=== PATIENT | female | born 1990 | race Caucasian/White ===

== ENCOUNTER 2017-01-19 08:49 | Emergency (ER) | payer SELFPAY ==
[2017-01-19 08:54] VITALS: TEMP 98.3; BMI 20.6
--- NOTE | 2017-01-19 10:35 | PDOC ---
*Physical Exam - Vital Signs Last Vital Signs Temp Pulse Resp BP Pulse Ox 98.3 F 93 H 18 110/70 100 01/19/17 08:51 01/19/17 08:51 01/19/17 08:51 01/19/17 08:51 01/19/17 08:51 - Physical Exam Comments: 01/19/17 10:35 MIDLEVEL NOTE Pt seen by Midlevel Provider under my direct supervision. Pt interviewed and examined. Ancillary studies reviewed. I agree with plan as outlined by Midlevel Provider. 01/19/17 15:51 Pelvic ultrasound The IUD has migrated into the lower uterine segment No fibroids Simple cyst in the left ovary ADULT NEUROLOGIST called Laboratory Results - last 24 hr 01/19/17 01/19/17 01/19/17 11:40 11:40 11:40 WBC 5.5 D RBC 3.96 D Hgb 13.1 D Hct 38.8 D MCV 98.0 H MCHC 33.6 RDW 13.1 Plt Count 233 MPV 7.6 Neutrophils % 67.4 Lymphocytes % 20.8 Monocytes % 11.0 H D Eosinophils % 0.6 Basophils % 0.2 Sodium 140 Potassium 4.0 Chloride 107 Carbon Dioxide 23 D Anion Gap 10 BUN 9 D Creatinine 0.5 L D Creat Clearance w eGFR > 60 Random Glucose 89 D Calcium 8.2 L Magnesium 2.5 H Total Bilirubin 0.4 D AST 24 D ALT 23 D Alkaline Phosphatase 51 D Total Protein 7.0 Albumin 3.9 D Lipase 86 Urine Color Yellow Urine Appearance Clear Urine pH 5.0 Ur Specific [place] 1.032 Urine Protein 1+ H Urine Glucose (UA) Negative Urine Ketones 1+ H Urine Blood 2+ H Urine Nitrite Negative Urine Bilirubin Negative Urine Urobilinogen 2.0 e.u/dl H Ur Leukocyte Esterase Negative Urine RBC 3 Urine WBC 1 Ur Epithelial Cells Moderate Urine Mucus Many Urine HCG, Qual Negative Case discussed with Dr. Charlton [employer] ED Treatment Course - LABORATORY CBC & Chemistry Diagram: 01/19/17 11:40 01/19/17 11:40 *DC/Admit/Observation/Transfer Diagnosis at time of Disposition: IUD migration Qualifiers: Encounter type: initial encounter Qualified Code(s): T83.89XA - Other specified complication of genitourinary prosthetic devices, implants and grafts , initial encounter - Discharge Dispostion Disposition: HOME Condition at time of disposition: Good - Prescriptions Prescriptions: Oxycodone HCl/Acetaminophen [Percocet 5-325 mg Tablet] 1 - 2 tab PO Q6H PRN #12 tab MDD 4 PRN Reason: Pain - Referrals Referrals: Ash Charlton MD [Staff Physician] - Catherine Navarro [Primary Care Provider] - - Patient Instructions Printed Discharge Instructions: DI for Vaginal Bleeding Additional Instructions: I recommend placing a heating pad to the affected areas to alleviate discomfort and take Percocet as needed for pain. Please avoid sexual intercourse and follow-up with Dr. Charlton in the clinic to have IUD migration addressed - Post Discharge Activity Work/School Note: Back to Work
[2017-01-19] MEDS ORDERED: ONDANSETRON 4 MG/2 ML VIAL IVPUSH ONE (11:07)
[2017-01-19] MEDS ORDERED: SODIUM CHLORIDE 1,000 ML IV STA ×2 (11:07→13:09)
[2017-01-19] MEDS ORDERED: KETOROLAC TROMETHAMINE 30 MG/1 ML VIAL IVPUSH ONE (11:07)
[2017-01-19] MEDS ORDERED: KETOROLAC TROMETHAMINE 30 MG/1 ML VIAL ONE (11:32)
[2017-01-19] MEDS ORDERED: ONDANSETRON 4 MG/2 ML VIAL ONE (11:32)
--- NOTE | 2017-01-19 11:49 | PDOC ---
History of Present Illness - General Chief Complaint: Vomiting/Diarrhea Stated Complaint: NAUSEA, VOMITING Time Seen by Provider: 01/19/17 10:31 History Source: Patient Exam Limitations: No Limitations - History of Present Illness Travel History: No Initial Comments: 01/19/17 11:45 26-year-old female presents to the ED with complaints of nausea vomiting and generalized fatigue for the past few days associated with heavy vaginal bleeding. Patient states is now having low back pain and states normally does not have heavy menses. Patient states had an IUD placed 5 months ago and did use contraceptive protection in the first few months as recommended. Patient denies fever, dysuria, but does state had one episode of diarrhea this morning. Patient states has upper abdominal cramping but also mild lower abdominal cramping. Patient took nothing for the above and decided come to the ER. Timing/Duration: reports: constant Quality: reports: mild, cramping Abdominal Pain Onset Location: reports: epigastric, suprapubic Pain Radiation: reports: no radiation Activities at Onset: reports: none Aggravating Factors: improves with: None Alleviating Factors: improves with: None Past History - Past Medical History Allergies/Adverse Reactions: Allergies Allergy/AdvReac Type Severity Reaction Status Date / Time naproxen Allergy Intermediate Hives Verified 01/19/17 08:51 Home Medications: Ambulatory Orders Oxycodone HCl/Acetaminophen [Percocet 5-325 mg Tablet] 1 - 2 tab PO Q6H PRN #12 tab MDD 4 01/19/17 Asthma: No Cancer: No Cardiac Disorders: No Diabetes: No HTN: No Seizures: No Thyroid Disease: No Other medical history: none - Reproductive History LMP Normal: No (heavy 2 days) Is Patient Now?: No - Psycho/Social/Smoking Cessation Hx Anxiety: No Suicidal Ideation: No Smoking History: Never smoked Have you smoked in the past 12 months: No Information on smoking cessation initiated: No Hx Alcohol Use: No Drug/Substance Use Hx: No Substance Use Type: None Hx Substance Use Treatment: No Patient Lives Alone: No Review of Systems - Review of Systems Able to Perform ROS?: Yes HEENTM: No: Symptoms Reported Respiratory: No: Symptoms reported Cardiac (ROS): No: Symptoms Reported ABD/GI: Yes: Diarrhea, Nausea, Vomiting, Abdominal cramping : No: Symptoms Reported Musculoskeletal: Yes: Back Pain (low) Integumentary: No: Symptoms Reported Neurological: No: Symptoms reported Hematologic/Lymphatic: No: Symptoms Reported *Physical Exam - Vital Signs Last Vital Signs Temp Pulse Resp BP Pulse Ox 98.3 F 93 H 18 110/70 98 01/19/17 08:51 01/19/17 08:51 01/19/17 08:51 01/19/17 08:51 01/19/17 11:43 - Physical Exam General Appearance: Yes: Nourished, Appropriately Dressed. No: Apparent Distress HEENT: positive: EOMI, SAR[place]N. negative: Pale Conjunctivae Neck: positive: Supple Respiratory/Chest: positive: Lungs Clear, Normal Breath Sounds. negative: Respiratory Distress, Accessory Muscle Use Cardiovascular: positive: Regular Rhythm, Regular Rate. negative: Murmur Gastrointestinal/Abdominal: positive: Normal Bowel Sounds, Soft, Tenderness ( epigastric. no right upper quadrant tenderness) Musculoskeletal: negative: CVA Tenderness Extremity: positive: Normal Capillary Refill. negative: Pedal Edema Integumentary: positive: Normal Color, Warm, Moist Neurologic: positive: Motor Strength 5/5 (ambulatory) ED Treatment Course - LABORATORY CBC & Chemistry Diagram: 01/19/17 11:40 01/19/17 11:40 Medical Decision Making - Medical Decision Making 01/19/17 11:48 Patient nausea and vomiting abdominal pain and low back pain. Patient also mentioning heavy menses 2 days. Patient exam had epigastric pain and lower suprapubic tenderness on exam. Patient ordered for labs, urine, IV fluids, Zofran, Toradol, and possible ultrasound once status is confirmed. 01/19/17 15:12 IUD has migrated towards the internal os in the lower uterine segment. Patient also with simple cyst in the left ovary. Sam placed to Dr. Canales since he placed the IUD 5 months ago. Patient will be given Percocet with crackers since she states the pain is returning. 01/19/17 15:12 Laboratory Tests 01/19/17 01/19/17 01/19/17 11:40 11:40 11:40 WBC 5.5 D Hgb 13.1 D Hct 38.8 D Neutrophils % 67.4 Monocytes % 11.0 H D Sodium 140 Potassium 4.0 Chloride 107 Carbon Dioxide 23 D Anion Gap 10 BUN 9 D Creatinine 0.5 L D Random Glucose 89 D Calcium 8.2 L Magnesium 2.5 H Lipase 86 Ur Specific [place] 1.032 Urine Ketones 1+ H Urine Blood 2+ H Urine Urobilinogen 2.0 e.u/dl H Ur Leukocyte Esterase Negative Urine RBC 3 Urine WBC 1 Urine HCG, Qual Negative Pt was ordered for a second bag of IV fluid. 01/19/17 16:43 Ultrasound shows IUD has migrated into the lower uterine segment. No fibroids simple cyst seen on the left ovary. Case discussed with Dr. Charlton and feels patient may be followed up in the clinic to have readjustment or removal based on patient's decision. Patient be discharged home with Percocet and given instructions to follow-up in the clinic. *DC/Admit/Observation/Transfer Diagnosis at time of Disposition: IUD migration Qualifiers: Encounter type: initial encounter Qualified Code(s): T83.89XA - Other specified complication of genitourinary prosthetic devices, implants and grafts , initial encounter - Discharge Dispostion Disposition: HOME Condition at time of disposition: Good - Prescriptions Prescriptions: Oxycodone HCl/Acetaminophen [Percocet 5-325 mg Tablet] 1 - 2 tab PO Q6H PRN #12 tab MDD 4 PRN Reason: Pain - Referrals Referrals: Catherine Navarro [Primary Care Provider] - Ash Charlton MD [Staff Physician] - - Patient Instructions Printed Discharge Instructions: DI for Vaginal Bleeding Additional Instructions: I recommend placing a heating pad to the affected areas to alleviate discomfort and take Percocet as needed for pain. Please avoid sexual intercourse and follow-up with Dr. Charlton in the clinic to have IUD migration addressed - Post Discharge Activity Work/School Note: Back to Work
[2017-01-19 12:07] LABS: BASOPHIL 0.2 % (0-2.0); EOSINOPHIL 0.6 % (0-4.5); MCHC 33.6 g/dl (32.0-36.0); MEAN PLT VOLUME 7.6 fl (7.5-11.1); NEUTROPHILS 67.4 % (42.8-82.8); PLATELET COUNT 233 K/MM3 (134-434); RDW 13.1 % (11.6-15.6); WHITE BLOOD COUNT 5.5 K/mm3 (4.0-10.0)
[2017-01-19 12:16] LABS: URINE APPEARANCE CLEAR; URINE BILIRUBIN NEGATIVE (NEGATIVE); URINE COLOR YELLOW; URINE GLUCOSE (UA) NEGATIVE (NEGATIVE); URINE KETONE 1+ (NEGATIVE); URINE LEUK ESTERASE NEGATIVE (NEGATIVE); URINE NITRITE NEGATIVE (NEGATIVE); URINE UROBILINOGEN 2.0 E.U/dl E.U./dl (0.2-1.0)
[2017-01-19 12:36] LABS: URINE BLOOD 2+ (NEGATIVE); URINE PROTEIN 1+ (NEGATIVE)
[2017-01-19 12:39] LABS: ALBUMIN 3.9 g/dl (3.4-5.0); ANION GAP 10 (8-16); CALCIUM 8.2 mg/dL (8.5-10.1); CO2 23 mmol/L (21-32); CREATININE 0.5 mg/dL (0.55-1.02); GLUCOSE,RANDOM 89 mg/dL (74-106); MAGNESIUM 2.5 mg/dL (1.8-2.4); SGOT/AST 24 U/L (15-37); SGPT/ALT 23 U/L (12-78)
[2017-01-19 12:41] LABS: ALK PHOS 51 U/L (45-117); BILIRUBIN,TOTAL 0.4 mg/dL (0.2-1.0)
[2017-01-19 12:43] LABS: URINE MUCUS MANY; URINE RBC 3 /hpf (0-3); URINE WBC 1 /hpf (3-5)
[2017-01-19] MEDS ORDERED: OXYCODONE/APAP 5/325MG COMBO TABLET PO ONE (15:13)
[2017-01-19] MEDS ORDERED: OXYCODONE/APAP 5/325MG COMBO TABLET ONE (16:03)
[2017-01-19 17:46] VITALS: BP 118/74; PULSE 73
== END 2017-01-19 17:30 | disposition home or self-care (01) ==
LOC: JER 08:49
PROC: 3E0337Z Introduction of Electrolytic and Water Balance Substance into Peripheral Vein, Percutaneous Approach (ICD-10-PCS; principal; 2017-01-19)
PROC: 3E0333Z Introduction of Anti-inflammatory into Peripheral Vein, Percutaneous Approach (ICD-10-PCS; 2017-01-19)
PROC: 3E033GC Introduction of Other Therapeutic Substance into Peripheral Vein, Percutaneous Approach (ICD-10-PCS; 2017-01-19)
DX: T83.89XA Other specified complication of genitourinary prosthetic devices, implants and grafts, initial encounter (principal); N83.202 Unspecified ovarian cyst, left side
CPT/HCPCS: 36415; 76830-TC; 76856-TC; 80053; 81003; 81015; 83690; 83735; 84703; 85025; 99283-25

== ENCOUNTER 2017-12-20 20:08 | Emergency (ER) | payer SELFPAY ==
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
[2017-12-20 20:23] VITALS: BP 124/78; PULSE 90; TEMP 97.9; BMI 21.7
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
== END 2017-12-20 20:57 | disposition home or self-care (01) ==
LOC: JERFT 20:08
DX: S00.83XA Contusion of other part of head, initial encounter (principal); S30.0XXA Contusion of lower back and pelvis, initial encounter; S20.219A Contusion of unspecified front wall of thorax, initial encounter; Y04.2XXA Assault by strike against or bumped into by another person, initial encounter; Y93.89 Activity, other specified; Y92.038 Other place in apartment as the place of occurrence of the external cause; Y07.59 Other non-family member, perpetrator of maltreatment and neglect
CPT/HCPCS: 99281-25

== ENCOUNTER 2022-09-14 14:50 | Inpatient (IN) | payer OTHER ==
[2022-09-14 15:56] VITALS: BMI 25.9
[2022-09-14] MEDS ORDERED: OXYTOCIN 30 UNITS in 0.9% NS 30 UNIT/500 ML INFUS.BAG IVPB SCH (16:15)
[2022-09-14] MEDS ORDERED: ELECTROLYTE-148 SOLN 1,000 ML IV SCH (16:15)
[2022-09-14] MEDS ORDERED: OXYTOCIN 30 UNITS in 0.9% NS 30 UNIT/500 ML INFUS.BAG IVPB ONE (16:26)
[2022-09-14 17:08] LABS: BASO % 0.3 % (0-2.0); EOS % 0.2 % (0-4.5); HEMATOCRIT 39.3 % (32.4-45.2); LYMPH % 20.5 % (8-40); MCH 32.5 pg (25.7-33.7); MCHC 33.2 g/dl (32.0-36.0); MEAN PLT VOLUME 8.3 fl (7.5-11.1); MONO % 6.7 % (3.8-10.2); NEUT % 72.3 % (42.8-82.8); PLATELET COUNT 333 10^3/uL (134-434); RBC 4.01 M/mm3 (3.60-5.2); RDW 13.4 % (11.6-15.6); WHITE BLOOD COUNT 9.4 K/mm3 (4.0-10.0)
[2022-09-14 17:16] LABS: INR 0.97 (0.83-1.09); PROTHROMBIN TIME (PATIENT) 11.1 SEC (9.7-13.0)
[2022-09-14 17:19] LABS: ACTIVATED PTT 30.8 SECONDS (25.2-36.5)
[2022-09-14 17:20] LABS: CALCIUM 8.8 mg/dL (8.5-10.1)
[2022-09-14 17:21] LABS: BLOOD UREA NITROGEN 7.5 mg/dL (7-18)
[2022-09-14 17:23] LABS: COCAINE, UR NEGATIVE (NEGATIVE); OPIATES, URI NEGATIVE (NEGATIVE); PHENCYCLIDINE,URINE NEGATIVE (NEGATIVE); URINE AMPHETAMINES NEGATIVE (NEGATIVE); URINE BARBITURATES NEGATIVE (NEGATIVE)
[2022-09-14 17:24] LABS: CREATININE 0.6 mg/dL (0.55-1.3)
[2022-09-14 17:27] LABS: METHADONE, UR NEGATIVE (NEGATIVE); URINE BENZODIAZEPINES NEGATIVE (NEGATIVE)
[2022-09-14] MEDS ORDERED: BUTORPHANOL TARTRATE 1 MG/ML VIAL IVPB ONE (19:10)
[2022-09-14] MEDS ORDERED: BUTORPHANOL TARTRATE 1 MG/ML VIAL ONE (19:15)
[2022-09-14] MEDS ORDERED: PROMETHAZINE HCL 25 MG/1 ML VIAL ONE (19:16)
[2022-09-14] MEDS ORDERED: LIDOCAINE HCL 1% PRESERVATIVE FREE - 30ML VIAL ONE (19:17)
[2022-09-14] MEDS ORDERED: OXYTOCIN 20 UNITS in 0.9% NS 20 UNIT/1,000 ML INFUS.BAG IV ONE (19:18)
[2022-09-14] MEDS ORDERED: PROMETHAZINE HCL 25 MG/1 ML VIAL IVPB ONE (19:30)
[2022-09-14] MEDS ORDERED: BENZOCAINE 28 GM HEMORRHOIDAL OINTMENT TP PRN (20:35)
[2022-09-14] MEDS ORDERED: WITCH HAZEL 50% (TUCKS) 40 PAD/JAR PAD TP PRN (20:35)
[2022-09-14] MEDS ORDERED: oxyCODONE HCL 5 MG TABLET PO PRN (20:35)
[2022-09-14] MEDS ORDERED: BENZOCAINE 20% 57 GM BOTTLE TP PRN (20:35)
[2022-09-14] MEDS ORDERED: BISACODYL 10 MG SUPP.RECT RC PRN (20:35)
[2022-09-14] MEDS ORDERED: METHYLERGONOVINE MALEATE 0.2 MG/1 ML AMP IM PRN (20:35)
[2022-09-14] MEDS ORDERED: ACETAMINOPHEN 325 MG TABLET (FP) PO PRN (20:35)
[2022-09-14] MEDS ORDERED: OXYTOCIN 20 UNITS in 0.9% NS 20 UNIT/1,000 ML INFUS.BAG IV SCH (20:45)
[2022-09-15] MEDS: IBUPROFEN 600 MG TABLET (FP) PO PRN ×3 (00:12→22:08)
[2022-09-15 09:14] LABS: BASO % 0.7 % (0-2.0); EOS % 0.3 % (0-4.5); HEMATOCRIT 33.4 % (32.4-45.2); LYMPH % 19.4 % (8-40); MCH 32.4 pg (25.7-33.7); MCHC 33.1 g/dl (32.0-36.0); MEAN PLT VOLUME 7.8 fl (7.5-11.1); NEUT % 73.6 % (42.8-82.8); PLATELET COUNT 310 10^3/uL (134-434); RBC 3.41 M/mm3 (3.60-5.2); RDW 13.4 % (11.6-15.6); WHITE BLOOD COUNT 15.1 K/mm3 (4.0-10.0)
[2022-09-15] MEDS: PRENATAL VITAMINS W/ FOLIC ACID TABLET (FP) PO SCH (09:58)
[2022-09-15 14:05] VITALS: RESP 18
[2022-09-15] MEDS ORDERED: SENNOSIDES/DOCUSATE COMBO (SENNA PLUS) TABLET (UD) PO PRN (22:00)
[2022-09-16] MEDS: IBUPROFEN 600 MG TABLET (FP) PO PRN (08:11)
[2022-09-16] MEDS: PRENATAL VITAMINS W/ FOLIC ACID TABLET (FP) PO SCH (09:57)
[2022-09-16 10:18] VITALS: BP 121/83; PULSE 71; TEMP 8.1
== END 2022-09-16 12:15 | disposition home or self-care (01) | DRG 807 ==
LOC: JLDR 14:50 → J3W 22:08
PROVIDERS: ADMIT Obstetrics & Gynecology; ATTEND Obstetrics & Gynecology
PROC: 10E0XZZ Delivery of Products of Conception, External Approach (ICD-10-PCS; principal; 2022-09-14)
PROC: 0W8NXZZ Division of Female Perineum, External Approach (ICD-10-PCS; 2022-09-14)
PROC: 0W8NXZZ Division of Female Perineum, External Approach (ICD-10-PCS; 2022-09-14)
DX: O41.03X0 Oligohydramnios, third trimester, not applicable or unspecified (principal); Z37.0 Single live birth; O34.211 Maternal care for low transverse scar from previous cesarean delivery; O36.5930 Maternal care for other known or suspected poor fetal growth, third trimester, not applicable or unspecified; O69.1XX0 Labor and delivery complicated by cord around neck, with compression, not applicable or unspecified; O70.0 First degree perineal laceration during delivery; Z3A.38 38 weeks gestation of pregnancy
CPT/HCPCS: 36415; 59409; 80048; 80307; 85025; 85610; 85730; 86780; 86850; 86900; 86901; C9803-CS; U0003; U0005